=== PATIENT | female | born 1960 | race Caucasian/White ===

== ENCOUNTER 2023-05-10 04:10 | Day surgery (SDC) | payer BC ==
[2023-05-05 16:19] VITALS: BMI 31.1
[2023-05-10 14:00] VITALS: TEMP 98.1
[2023-05-10 14:05] VITALS: BP 111/65; PULSE 84; RESP 17
== END 2023-05-10 12:09 | disposition home or self-care (01) ==
LOC: JASU-ENDO 04:10
PROVIDERS: ATTEND Internal Medicine Gastroenterology
PROC: 0DBN8ZX Excision of Sigmoid Colon, Via Natural or Artificial Opening Endoscopic, Diagnostic (ICD-10-PCS; 2023-05-10)
PROC: 0DBM8ZX Excision of Descending Colon, Via Natural or Artificial Opening Endoscopic, Diagnostic (ICD-10-PCS; principal; 2023-05-10 11:00)
DX: Z12.11 Encounter for screening for malignant neoplasm of colon (principal); K63.5 Polyp of colon; K64.8 Other hemorrhoids; Z86.010 Personal history of colon polyps
CPT/HCPCS: 88305-TC